=== PATIENT | male | born 1975 | race Two or more races ===

== ENCOUNTER 2021-12-23 01:34 | Emergency (ER) | payer OTHER ==
[~2021-12-23] VITALS: Ht 167.6 cm; Wt 72.6 kg
--- NOTE | 2021-12-23 01:40 | NUR ---
STEFANY FROM STREET C/O OD ON FENTANYL. GIVEN NARCAN BY FRIEND NASAL. +SI. ABRASIONS NOTED ON HEAD. PER PT WAS BANGING HEAD ON WALL. PT AWAKE AND RESPONSIVE. TOLERATING R/A WELL WITH NO SOB; RESP EVEN AND NON LABORED. CONNECTED PT TO POX AND MONITOR. PT WANDED BY SECURITY, IN GOWN, AND BELONGINGS PLACED IN LOCKER. SAFETY 1:[address]
[2021-12-23 02:10] LABS: BASOPHILS # (AUTO) 0.1 K/uL (0.0-0.2); EOSINOPHILS % (AUTO) 6.6 % (0.0-6.0); HEMATOCRIT 43 % (39-51); HEMOGLOBIN 14.3 g/dL (13.5-17.5); LYMPHOCYTES # (AUTO) 2.5 K/uL (0.8-4.8); LYMPHOCYTES % (AUTO) 27.9 % (20.0-44.0); MEAN CORPUSCULAR HGB CONC 34 g/dl (31.0-36.0); MEAN CORPUSCULAR VOLUME 89 fL (80-96); MONOCYTES # (AUTO) 0.6 K/uL (0.1-1.30); MONOCYTES % (AUTO) 6.5 % (2.0-12.0); NEUTROPHILS # (AUTO) 5.3 K/uL (1.8-8.9); PLATELET COUNT (AUTO) 223 K/uL (150-450); RED BLOOD CELL COUNT(AUTO) 4.79 MIL/uL (4.5-6.0)
[2021-12-23 02:25] LABS: BILIRUBIN,URINE NEGATIVE (NEGATIVE); COLOR,URINE YELLOW (YELLOW); LEUKOCYTE ESTERASE ,URINE NEGATIVE (NEGATIVE); NITRITE, URINE NEGATIVE (NEGATIVE); PH,URINE 6.5 (5.0-8.0); PROTEIN,URINE TRACE mg/dl (NEGATIVE); UGLUCOSE NEGATIVE (NEGATIVE); UROBILINOGEN,URINE 0.2 EU/dL (0.2)
[2021-12-23 02:26] LABS: ALANINE AMINOTRANSFERASE 14 U/L (12-78); ALBUMIN 3.7 g/dL (3.4-5.0); ALCOHOL, BLOOD < 3 mg/dL (0-0); ALKALINE PHOSPHATASE 125 U/L (46-116); ASPARTATE AMINOTRANSFERASE 11 U/L (15-37); BILIRUBIN,DIRECT 0.1 mg/dL (0.0-0.2); BILIRUBIN,TOTAL 0.4 mg/dL (0.2-1.0); CALCIUM, SERUM 8.2 mg/dL (8.5-10.1); CARBON DIOXIDE 28 mmol/L (21-32); CREATININE 0.8 mg/dL (0.6-1.3); GLUCOSE 119 mg/dL (74-106); TOTAL PROTEIN, SERUM 6.9 g/dL (6.4-8.2); UREA NITROGEN, BLOOD 11 mg/dL (7-18)
[2021-12-23] MEDS ORDERED: TDAP [DIPH/PERTUSSIS/TET] 0.5 ML VIAL IM ONE ×2 (02:30→02:41)
[2021-12-23 02:32] LABS: ACETAMINOPHEN < 2 ug/ml (10-30)
--- NOTE | 2021-12-23 02:46 | NUR ---
COVID ANTIGEN SWAB COLLECTED AND SENT TO LAB
[2021-12-23 02:47] LABS: CHLORIDE 106 mmol/L (98-107); POTASSIUM 3.3 mmol/L (3.5-5.1); SODIUM SERUM 140 mmol/L (136-145)
--- NOTE | 2021-12-23 06:17 | NUR ---
FAXED FACESHEET AND CLINICALS TO [facility]
--- NOTE | 2021-12-23 07:44 | NUR ---
FAXED FACE SHEET TO [facility].
--- NOTE | 2021-12-23 09:38 | NUR ---
Pt. accepted to [facility] under Dr. Guzman. Number to report [phone], unit 2. Per Alverto, he will call back with ETA.
--- NOTE | 2021-12-23 10:07 | NUR ---
ETA IS 1020
--- NOTE | 2021-12-23 10:13 | NUR ---
REPORT GIVEN TO KEVEN PENDLETON OF [facility] [place]
--- NOTE | 2021-12-23 10:55 | NUR ---
SPOKE TO DILEEP FROM [facility] AND STATED THAT TRANSPORTATION WAS CANCELLED, FACILITY'S PATIENT ARE TETSING POSITIVE FOR COVID AND ARE ADDRESSING THE ISSUE AND NOT ACCEPTING PATIENTS AT THIS TIME. STATED WILL NOTIFY US ONCE THEY ARE ACCEPTING PATIENTS AGAIN.
--- NOTE | 2021-12-23 11:27 | NUR ---
SPOKE TO AUGUST SLAUGHTER. PER AUGUST, [facility] WILL TAKE PATIENTS IN AGAIN IN 3-4 HOURS AFTER TAKING CARE OF THEIR COVID PATIENT (FINDING A PLACEMENT)
--- NOTE | 2021-12-23 12:06 | NUR ---
SS Note: SS consult requested for overdose. Pt. Is a 46-year-old male. Per EMR, pt. was brought in for Fentanyl overdose. Per pt., this has happened before. Pt. presents alert and oriented x3 (self, time, situation). Pt. appeared unkempt, made appropriate eye-contact, and was cooperative during interview. Pt. reported to feeling depressed for the last couple days, so he used Fentanyl. Pt. denies homicidal ideation. Pt. reported no auditory hallucinations, visual hallucinations, paranoia, or delusions. Pt. stated he is feeling suicidal with a plan of banging his head on a wall. Pt. has recently done that, which left a scar on his head. Pt. states that he uses crystal meth and marijuana daily. He has been to rehab but left in two days [this was four years ago per pt.]. SW explored pt.'s living situation. Per pt., he has been homeless for 13 years. Pt. has been to shelters but does not like it. Per pt., there were too many people around him. Pt. has no family or support system. Pt. expressed that he wants voluntary admission to [facility]. Pt. is medically cleared and SW faxed clinicals to [facility] [fax: [phone]]. Per intake, there is a positive COVID pt. so the process may take longer. Plan: SUKHJINDER provided available resources: [facility]: [address], [place] [address]- [phone], [facility]: [address] [place] [phone], [facility]: [address] [place] [id number]: [phone]. Patient appears to be at the contemplation phase of with his substance dependence. Resources Provided: [facility]: [address], [place] [address] Intake hours: 5:45am-9:00am, walk-ins Tuesday, Tuesday, [facility]: [address] [place] [address] Intake hours: 5:45am-12:30pm, Tuesday and [facility]: [address] [place] [id number] Intake hours: 8:00am-2:00pm, Tuesday through Tuesday
--- NOTE | 2021-12-23 14:20 | NUR ---
SPOKE WITH DILEEP [facility], PATIENT WILL BE PEER TUTOR (TRANSPORTATION) AT [phone]. PRIMARY NURSE AWARE.
[2021-12-23 14:53] VITALS: BP 122/84
--- NOTE | 2021-12-23 14:54 | NUR ---
IV removed. Catheter intact and site benign. Pressure and 4x4 applied to site. No bleeding noted. [facility] tranposrtation arrived, pt discharged from our facility to [facility] in stable condition, pt left facility walking on his own without assistance.
== END 2021-12-23 14:56 ==
LOC: ER 01:37
DX: T40.412A Poisoning by fentanyl or fentanyl analogs, intentional self-harm, initial encounter (principal); Y92.410 Unspecified street and highway as the place of occurrence of the external cause; F31.9 Bipolar disorder, unspecified; S09.90XA Unspecified injury of head, initial encounter; X83.8XXA Intentional self-harm by other specified means, initial encounter; Z59.00 Homelessness unspecified; Z20.822 Contact with and (suspected) exposure to COVID-19
CPT/HCPCS: 99285; 90471; 90715; 70450; 85025; 80048; 80076; 81003; 36415; 87426; 80143; 80320; 80307; C9803; G0480